=== PATIENT | female | born 1965 ===

== ENCOUNTER 2018-08-25 13:17 | Emergency (ER) | payer BC ==
[2018-08-25 13:18] VITALS: BMI 25.0
[2018-08-25 13:55] VITALS: O2SAT 100
--- NOTE | 2018-08-25 14:03 | C.PDOC ---
History Of Present Illness 53 [id number], whose PMHx includes IBS, presents to the ED for evaluation of left-sided abdominal pain for 1 week. Patient states symptoms have worsened over the last day and are associated with nausea in the morning. Patient also reports mildly decreased appetite. She was evaluated by her PMD today and was advised to present to the ED for further evaluation. Patient denies fever, chills, vomiting, diarrhea, constipation, urinary symptoms or black/bloody stools. Surgical history: cholecystectomy, tubal ligation Family history: liver cancer social history: social drinker, no drug use PMD: Dr. Alcon Mackenzie Time Seen by Provider: 08/25/18 13:59 Chief Complaint (Nursing): Abdominal Pain History Per: Patient History/Exam Limitations: no limitations Onset/Duration Of Symptoms: Other (1 week ) Current Symptoms Are (Timing): Still Present Location Of Pain/Discomfort: Other (left-sided ) Radiation Of Pain To:: None Quality Of Discomfort: "Pain" Associated Symptoms: Nausea. denies: Fever, Chills, Vomiting, Diarrhea, Urinary Symptoms Additional History Per: Patient Abnormal Vaginal Bleeding: No Past Medical History Reviewed: Historical Data, Nursing Documentation, Vital Signs Vital Signs: Last Vital Signs Temp 98.2 F 08/25/18 13:47 Pulse 92 H 08/25/18 13:47 Resp 18 08/25/18 13:47 BP 167/78 H 08/25/18 13:47 Pulse Ox 100 08/25/18 13:47 - Medical History PMH: Diabetes Surgical History: Cholecystectomy - [facility] Procedures CYSTOSCOPY NEC (06/18/06) INJECT/INFUSE NEC (09/07/06) RETROGRADE PYELOGRAM (06/18/06) TRANSURETH BLADD BIOPSY (06/18/06) Family History: States: Unknown Family Hx - Social History Hx Tobacco Use: No Hx Alcohol Use: No Hx Substance Use: No - Immunization History Hx Tetanus Toxoid Vaccination: No Hx Influenza Vaccination: No Hx Pneumococcal Vaccination: No Review Of Systems Constitutional: Negative for: Fever, Chills Gastrointestinal: Positive for: Nausea, Abdominal Pain (left-sided ). Negative for: Vomiting, Diarrhea Genitourinary: Negative for: Dysuria, Frequency, Hematuria Physical Exam - Physical Exam Appears: Non-toxic, Other (in mild painful distress ) Skin: Warm, Dry Head: Atraumatic, Normacephalic Eye(s): bilateral: PERRL, EOMI Oral Mucosa: Moist Throat: No Erythema, No Exudate Neck: Normal ROM, Trachea Midline Lymphatic: No Adenopathy Chest: Symmetrical Cardiovascular: Rhythm Regular, No Murmur Respiratory: Normal Breath Sounds, No Rales, No Wheezing Gastrointestinal/Abdominal: Tenderness (to upper and lower quadrants on palpation ), No Mass, No Guarding, No Rebound Back: Normal Inspection, No Muscle Spasm Extremity: Normal ROM, No Deformity Neurological/Psych: Oriented x3, Normal Motor, Normal Sensation ED Course And Treatment - Laboratory Results Result Diagrams: 08/25/18 15:16 08/25/18 15:16 O2 Sat by Pulse Oximetry: 100 (on RA ) Pulse Ox Interpretation: Normal Medical Decision Making Medical Decision Making: Impression: 53 year old female with left-sided abdominal pain Differential diagnoses include but are not limited to: colitis vs diverticulitis vs enteritis vs gastritis Progress: Bloodwork, urinalysis, CT A/P ordered and reviewed. Toradol IVP, Zofran IVP, and IV fluids given. Labs unremarkable Accession No. : [id number] Patient Name / ID : AMADO URIBE / [id number] Exam Date : 08/25/2018 16:37:55 ( Approved ) Study Comment : Sex / Age : F / 53Y Creator : Sarah Rivera MD Dictator : Sarah Rivera MD [employer] Supervisor : Strike Operations Officer : Sarah Rivera MD Approver2 : Report Date : 08/25/2018 17:09:06 My Comment : PROCEDURE: CT Abdomen and Pelvis with oral and IV contrast. HISTORY: LLQ pain COMPARISON: CT abdomen and pelvis with IV contrast performed 03/08/15 TECHNIQUE: Contiguous axial images of the abdomen and pelvis. Oral and IV contrast was administered. Coronal and Sagittal reformats generated and reviewed. Contrast dose: 150 mL Visipaque 320 Radiation dose: Total exam DLP = 240.95 mGy-cm. This CT exam was performed using one or more of the following dose reduction techniques: Automated exposure control, adjustment of the mA and/or kV according to patient size, and/or use of iterative reconstruction technique. FINDINGS: LOWER THORAX: No visible consolidation, pleural effusion, or pneumothorax. LIVER: Hypoattenuation of the liver compatible with hepatic steatosis. GALLBLADDER AND BILE DUCTS: Dilated common bile duct in the setting of cholecystectomy. PANCREAS: Unremarkable. SPLEEN: Unremarkable. ADRENALS: Unremarkable. KIDNEYS AND URETERS: The kidneys enhance symmetrically. No hydronephrosis or obstructing renal calculus. BLADDER: The urinary bladder appears unremarkable. REPRODUCTIVE: Heterogeneous lobulated enlarged uterus likely related to fibroids. 10 mm probable left ovarian cyst. Nabothian cysts. APPENDIX: The appendix appears within normal limits of caliber. No secondary signs of acute appendicitis. BOWEL: The stomach is nondistended. The bowel loops appear within normal limits of caliber without evidence of intestinal obstruction. PERITONEUM: No significant free fluid. No definite free air. LYMPH NODES: No bulky lymphadenopathy identified. VASCULATURE: No significant atherosclerotic calcification or mural plaque identified. No aortic aneurysm. BONES: No acute osseous abnormality is detected. OTHER FINDINGS: None. IMPRESSION: Heterogeneous lobulated enlarged uterus likely related to fibroids. 10 mm probable left ovarian cyst. Nabothian cysts. Recommend pelvic ultrasound for further evaluation if indicated. Dilated common bile duct in the setting of cholecystectomy. Additional findings as above. Disposition Counseled Patient/Family Regarding: Studies Performed, Diagnosis, Need For Followup, Rx Given - Disposition Disposition: HOME/ ROUTINE Disposition Time: 17:22 Condition: STABLE Prescriptions: Dicyclomine [Bentyl] 20 mg PO QID PRN #20 tab PRN Reason: abdominal pain RX: Ibuprofen [Motrin Tab] 600 mg PO Q8 PRN #60 tab PRN Reason: Pain, Moderate (4-7) Ondansetron ODT [Zofran ODT] 1 odt PO Q6 PRN #20 odt PRN Reason: Nausea/Vomiting Instructions: Uterine Fibroids, Acute Abdomen (Belly Pain), Adult (DC) - Clinical Impression Clinical Impression: Abdominal pain, Fibroids - Scribe Statement The provider has reviewed the documentation as recorded by the Scribe Provider Attestation: All medical record entries made by the Scribe were at my direction and personally dictated by me. I have reviewed the chart and agree that the record accurately reflects my personal performance of the history, physical exam, medical decision making, and the department course for this patient. I have also personally directed, reviewed, and agree with the discharge instructions and disposition.
[2018-08-25] MEDS ORDERED: Sodium Chloride 0.9% 1,000 ML IV ONE (15:09)
[2018-08-25] MEDS ORDERED: Iohexol 240 (50 ml) PO STA (15:09)
[2018-08-25 15:12] LABS: HCG,QUALITATIVE URINE NEGATIVE (NEGATIVE)
[2018-08-25 15:13] LABS: SQUAMOUS EPITHIAL 3 /hpf (0-5); URINE BACTERIA RARE (<OCC); URINE BILIRUBIN NEGATIVE (NEGATIVE); URINE BLOOD NEGATIVE (NEGATIVE); URINE CLARITY Hazy (Clear); URINE COLOR Yellow (YELLOW); URINE GLUCOSE (UA) NORMAL (Normal); URINE LEUKOCYTE ESTERASE NEG Leu/uL (Negative); URINE PROTEIN NEGATIVE (NEGATIVE); URINE UROBILINOGEN NORMAL mg/dL (0.2-1.0)
[2018-08-25] MEDS ORDERED: Sodium Chloride 0.9% 1,000 ML ONE (15:19)
[2018-08-25] MEDS ORDERED: Iohexol 240 (50 ml) ONE (15:19)
[2018-08-25 15:21] LABS: BASO % 0.6 % (0.0-2.0); EOS # 0.1 K/uL (0.0-0.7); EOS % 1.8 % (0.0-4.0); HEMOGLOBIN 13.5 g/dL (11.0-16.0); LYMPH # 1.9 K/uL (1.0-4.3); LYMPH % 35.7 % (20.0-40.0); MEAN CELL VOLUME 71.4 fL (81.0-99.0); MEAN CORPUSCULAR HEMOGLOBIN 23.2 pg (27.0-31.0); MEAN CORPUSCULAR HGB CONC 32.6 g/dL (33.0-37.0); MEAN PLATELET VOLUME 8.4 fL (7.2-11.7); MONO # 0.5 K/uL (0.0-0.8); MONO % 9.7 % (0.0-10.0); NEUT # 2.8 K/uL (1.8-7.0); NEUT % 52.2 % (50.0-75.0); RBC 5.82 Mil/uL (3.80-5.20); WHITE BLOOD COUNT 5.4 K/uL (4.8-10.8)
[2018-08-25 15:40] LABS: ALB/GLOB RATIO 1.4 (1.0-2.1); ALBUMIN 4.7 g/dL (3.5-5.0); ALT/SGPT 29 U/L (9-52); AST/SGOT 28 U/L (14-36); BLOOD UREA NITROGEN 16 mg/dL (7-17); CALCIUM 9.9 mg/dl (8.6-10.4); GFR NON-AFRICAN AMERICAN > 60; LIPASE 138 U/L (23-300)
[2018-08-25 15:58] VITALS: BP 157/77; PULSE 67; RESP 17; TEMP 97.6
[2018-08-25] MEDS ORDERED: Iodixanol 320 MG/ML 100 ML BOTTLE IV ONE (16:26)
--- NOTE | 2018-08-25 17:13 | CT ---
PROCEDURE: CT Abdomen and Pelvis with oral and IV contrast. HISTORY: LLQ pain COMPARISON: CT abdomen and pelvis with IV contrast performed 03/08/15 TECHNIQUE: Contiguous axial images of the abdomen and pelvis. Oral and IV contrast was administered. Coronal and Sagittal reformats generated and reviewed. Contrast dose: 150 mL Visipaque 320 Radiation dose: Total exam DLP = 240.95 mGy-cm. This CT exam was performed using one or more of the following dose reduction techniques: Automated exposure control, adjustment of the mA and/or kV according to patient size, and/or use of iterative reconstruction technique. FINDINGS: LOWER THORAX: No visible consolidation, pleural effusion, or pneumothorax. LIVER: Hypoattenuation of the liver compatible with hepatic steatosis. GALLBLADDER AND BILE DUCTS: Dilated common bile duct in the setting of cholecystectomy. PANCREAS: Unremarkable. SPLEEN: Unremarkable. ADRENALS: Unremarkable. KIDNEYS AND URETERS: The kidneys enhance symmetrically. No hydronephrosis or obstructing renal calculus. BLADDER: The urinary bladder appears unremarkable. REPRODUCTIVE: Heterogeneous lobulated enlarged uterus likely related to fibroids. 10 mm probable left ovarian cyst. Nabothian cysts. APPENDIX: The appendix appears within normal limits of caliber. No secondary signs of acute appendicitis. BOWEL: The stomach is nondistended. The bowel loops appear within normal limits of caliber without evidence of intestinal obstruction. PERITONEUM: No significant free fluid. No definite free air. LYMPH NODES: No bulky lymphadenopathy identified. VASCULATURE: No significant atherosclerotic calcification or mural plaque identified. No aortic aneurysm. BONES: No acute osseous abnormality is detected. OTHER FINDINGS: None. IMPRESSION: Heterogeneous lobulated enlarged uterus likely related to fibroids. 10 mm probable left ovarian cyst. Nabothian cysts. Recommend pelvic ultrasound for further evaluation if indicated. Dilated common bile duct in the setting of cholecystectomy. Additional findings as above.
== END 2018-08-25 17:34 | disposition home or self-care (01) ==
LOC: C.ER 13:17
DX: D25.9 Leiomyoma of uterus, unspecified (principal); R10.32 Left lower quadrant pain
CPT/HCPCS: 74177; 80053; 81001; 83690; 84703; 85025; 96361; 96374; 96375; 99284; J1885; J2405; J7030; Q9966; Q9967